=== PATIENT | male | born 1955 | race Caucasian/White ===

== ENCOUNTER 2016-07-24 02:46 | Emergency (ER) | payer BC, OTHER ==
[2016-07-24 02:54] VITALS: BP 118/73; PULSE 52; RESP 20; TEMP 98.2
[2016-07-24] MEDS ORDERED: KETOROLAC 60 MG/2 ML VIAL IM STA (03:22)
--- NOTE | 2016-07-24 03:27 | ED ---
General Adult HPI - General Chief complaint: Urogenital Stated complaint: POSS GROIN INJURY Time Seen by Provider: 07/24/16 03:11 Source: patient, family, RN notes reviewed Mode of arrival: ambulatory Limitations: no limitations - History of Present Illness Initial comments: Patient a 60-year-old male who presents emergency room today with chief complaint of injury to the left groin. Patient does admit that he was at work picking up a box weighing approximately 40 pounds when he felt increased pain to the left groin area. Patient does admit that the pain is worse with certain movements. States still uncomfortable even at rest. Patient denies any other complaints. Denies any history of hernia. Patient denies any recent fever, chills, shortness of breath, chest pain, back pain, abdominal pain, nausea or vomiting, numbness or tingling, dysuria or hematuria, constipation or diarrhea, headaches or visual changes, or any other complaints. - Related Data Home Medications Medication Instructions Recorded Confirmed Atorvastatin Calcium [Lipitor] 40 mg PO HS 12/31/13 07/24/16 Empagliflozin/Linagliptin 1 tab PO DAILY 08/24/15 07/24/16 [Glyxambi 25 mg-5 mg Tablet] Gabapentin 600 mg PO 5XD 08/24/15 07/24/16 Lisinopril [Zestril] 20 mg PO HS 08/24/15 07/24/16 Hydrocodone/Acetaminophen 1 tab PO TID PRN 09/22/15 07/24/16 [Hydrocodon-Acetaminophn 10-325] Ibuprofen [Motrin] 800 mg PO BID PRN 09/22/15 07/24/16 Modafinil 200 mg PO DAILY 09/22/15 07/24/16 Omeprazole [PriLOSEC] 20 mg PO DAILY 09/22/15 07/24/16 metFORMIN HCL 1,000 mg PO BID 09/22/15 07/24/16 tiZANidine HCL [Tizanidine HCl] 4 mg PO HS 09/22/15 07/24/16 Aspirin [Adult Low Dose Aspirin EC] 81 mg PO DAILY 10/01/15 07/24/16 Cholecalciferol [Vitamin D3] 1 tab PO DAILY 02/06/16 07/24/16 Multivitamin [Men's Multi-Vitamin] 1 tab PO DAILY 02/06/16 07/24/16 Previous Rx's Medication Instructions Recorded Cyclobenzaprine [Flexeril] 10 mg PO TID PRN #15 tab 02/06/16 Hydrocodone/Acetaminophen [[place] 1 each PO Q6HR PRN #20 tab 07/24/16 5-325] Ibuprofen [Motrin] 600 mg PO Q6HR PRN #40 day 07/24/16 Allergies Allergy/AdvReac Type Severity Reaction Status Date / Time amoxicillin AdvReac Itching Verified 07/24/16 02:54 Review of Systems ROS Statement: Those systems with pertinent positive or pertinent negative responses have been documented in the HPI. ROS Other: All systems not noted in ROS Statement are negative. Past Medical History Past Medical History: CVA/TIA, Diabetes Mellitus, Hyperlipidemia, Hypertension, Sleep Apnea/CPAP/BIPAP Additional Past Medical History / Comment(s): narcolepsy,migraines, Patient states that he had a TIA just before Mimi in 2014. Patient here last month for stroke like symptoms CVA ruled out diagnosed stress History of Any Multi-Drug Resistant Organisms: None Reported Additional Past Surgical History / Comment(s): eye surgery x 3 for "cross eyed" as Past Anesthesia/Blood Transfusion Reactions: No Reported Reaction Past Psychological History: Depression Smoking Status: Never smoker Past Alcohol Use History: None Reported Past Drug Use History: None Reported - Past Family History Mother Family Medical History: No Reported History Father Family Medical History: Myocardial Infarction ([place]) Additional Family Medical History / Comment(s): from [place] General Exam - General Exam Comments Initial Comments: General: The patient is awake and alert, in no distress, and does not appear acutely ill. Eye: Pupils are equal, round and reactive to light, extra-ocular movements are intact. No nystagmus. There is normal conjunctiva bilaterally. No signs of icterus. Ears, nose, mouth and throat: There are moist mucous membranes and no oral lesions. Neck: The neck is supple, there is no tenderness or JVD. Cardiovascular: There is a regular rate and rhythm. No murmur, rub or gallop is appreciated. Respiratory: Lungs are clear to auscultation, respirations are non-labored, breath sounds are equal. No wheezes, stridor, rales, or rhonchi. Gastrointestinal: Soft, non-distended, non-tender abdomen without masses or organomegaly noted. There is no rebound or guarding present. No CVA tenderness. Bowel sounds are unremarkable. Musculoskeletal: Normal ROM, no tenderness. Strength 5/5. Sensation intact. Pulses equal bilaterally 2+. Neurological: A&O x 3. CN II-XII intact, There are no obvious motor or sensory deficits. Coordination appears grossly intact. Speech is normal. Skin: Skin is warm and dry and no rashes or lesions are noted. Psychiatric: Cooperative, appropriate mood & affect, normal judgment. : Patient does have a small inguinal hernia left side that is reducible on palpation. Patient checked both in a supine and standing position. Limitations: no limitations Course Vital Signs 07/24/16 02:50 Temperature 98.2 F Pulse Rate 52 L Respiratory 20 Rate Blood Pressure 118/73 O2 Sat by Pulse 95 Oximetry Medical Decision Making - Medical Decision Making Was discussed with patient about possible groin muscle strain versus small hernia. Patient given Toradol shot here in the emergency room for symptoms advised follow-up with employee health also be given information for surgeon on- call. Advised that pain increases or worsens to return to emergency room for evaluation. Patient states understanding and is in agreement. Disposition Clinical Impression: Reducible left inguinal hernia Disposition: HOME SELF-CARE Condition: Good Instructions: Inguinal Hernia (ED) Additional Instructions: Please follow-up with employee health in the morning as discussed. Please use pain medication as prescribed. Please return to emergency room for any other concerns. Prescriptions: Hydrocodone/Acetaminophen [Sprakers 5-325] 1 each PO Q6HR PRN #20 tab PRN Reason: Pain Ibuprofen [Motrin] 600 mg PO Q6HR PRN #40 day PRN Reason: Pain Referrals: Bret Evans MD [Primary Care Provider] - 1-2 days Ricardo Funez MD [STAFF PHYSICIAN] - 1-2 days Time of Disposition: 03:26
== END 2016-07-24 03:35 | disposition home or self-care (01) ==
LOC: EC 02:46
DX: K40.90 Unilateral inguinal hernia, without obstruction or gangrene, not specified as recurrent (principal); Z88.0 Allergy status to penicillin; E11.9 Type 2 diabetes mellitus without complications; E78.5 Hyperlipidemia, unspecified; I10 Essential (primary) hypertension; G47.30 Sleep apnea, unspecified; Z79.84 Long term (current) use of oral hypoglycemic drugs; Z79.82 Long term (current) use of aspirin; Z79.899 Other long term (current) drug therapy
CPT/HCPCS: 99283; 96372; J1885

== ENCOUNTER 2016-07-31 06:39 | Inpatient (IN) | payer BC ==
--- NOTE | 2016-07-31 07:37 | ED ---
General Adult HPI - General Chief complaint: Psychiatric Symptoms Stated complaint: MENTAL HEALTH Time Seen by Provider: 07/31/16 07:08 Source: patient, RN notes reviewed Mode of arrival: ambulatory Limitations: no limitations - History of Present Illness Initial comments: Patient is a 60-year-old male presenting to the emergency Department with depression. Patient is having problems with his old lady. Patient states he has chronic depression and is having thoughts of harming himself. Patient has thoughts of driving himself into the river. Patient states he does have a history of self-harm. No homicidal thoughts. Patient does see people that tell him to harm himself. No alcohol or street drug use. No specific physical complaint. - Related Data Home Medications Medication Instructions Recorded Confirmed Atorvastatin Calcium [Lipitor] 40 mg PO HS 12/31/13 07/31/16 Empagliflozin/Linagliptin 1 tab PO DAILY 08/24/15 07/31/16 [Glyxambi 25 mg-5 mg Tablet] Lisinopril [Zestril] 20 mg PO HS 08/24/15 07/31/16 Omeprazole [PriLOSEC] 20 mg PO DAILY 09/22/15 07/31/16 metFORMIN HCL 1,000 mg PO BID 09/22/15 07/31/16 Aspirin [Adult Low Dose Aspirin EC] 81 mg PO DAILY 10/01/15 07/31/16 Cholecalciferol [Vitamin D3] 1 tab PO DAILY 02/06/16 07/31/16 Multivitamin [Men's Multi-Vitamin] 1 tab PO DAILY 02/06/16 07/31/16 ALPRAZolam [Xanax] 0.5 mg PO BID PRN 07/31/16 07/31/16 Citalopram Hydrobromide [CeleXA] 20 mg PO DAILY 07/31/16 07/31/16 Dextroamphetamine/Amphetamine 15 mg PO QAM 07/31/16 07/31/16 [Adderall Xr] Hydrocodone/Acetaminophen [[place] 1 tab PO Q6HR PRN 07/31/16 07/31/16 5-325] Venlafaxine HCl ER [Effexor Xr] 37.5 mg PO DAILY 07/31/16 07/31/16 Previous Rx's Medication Instructions Recorded Ibuprofen [Motrin] 600 mg PO Q6HR PRN #40 day 07/24/16 Allergies Allergy/AdvReac Type Severity Reaction Status Date / Time amoxicillin AdvReac Itching Verified 07/31/16 06:46 Review of Systems ROS Statement: Those systems with pertinent positive or pertinent negative responses have been documented in the HPI. ROS Other: All systems not noted in ROS Statement are negative. Constitutional: Denies: fever Eyes: Denies: eye pain ENT: Denies: ear pain Respiratory: Denies: cough Cardiovascular: Denies: chest pain Endocrine: Denies: fatigue Gastrointestinal: Denies: abdominal pain Genitourinary: Denies: dysuria Musculoskeletal: Denies: back pain Skin: Denies: rash Neurological: Denies: headache Psychiatric: Reports: depression, suicidal thoughts Past Medical History Past Medical History: CVA/TIA, Diabetes Mellitus, Hyperlipidemia, Hypertension, Sleep Apnea/CPAP/BIPAP Additional Past Medical History / Comment(s): narcolepsy,migraines, Patient states that he had a TIA just before in 2014. Patient here last month for stroke like symptoms CVA ruled out diagnosed stress History of Any Multi-Drug Resistant Organisms: None Reported Additional Past Surgical History / Comment(s): eye surgery x 3 for "cross eyed" as Past Anesthesia/Blood Transfusion Reactions: No Reported Reaction Past Psychological History: Depression Smoking Status: Never smoker Past Alcohol Use History: None Reported, Occasional Past Drug Use History: None Reported - Past Family History Mother Family Medical History: No Reported History Father Family Medical History: Myocardial Infarction ([place]) Additional Family Medical History / Comment(s): from [place] General Exam Limitations: no limitations General appearance: alert, in no apparent distress Head exam: Present: atraumatic Eye exam: Present: normal appearance Neck exam: Present: normal inspection Respiratory exam: Present: normal lung sounds bilaterally Cardiovascular Exam: Present: regular rate, normal rhythm GI/Abdominal exam: Present: soft. Absent: tenderness Extremities exam: Present: normal inspection Neurological exam: Present: alert Psychiatric exam: Present: depressed, flat affect Skin exam: Absent: rash Course Vital Signs 07/31/16 07/31/16 06:40 09:30 Temperature 97.1 F L 97.9 F Pulse Rate 64 67 Respiratory 16 18 Rate Blood Pressure 156/83 137/75 O2 Sat by Pulse 98 99 Oximetry Medical Decision Making - Medical Decision Making Patient was seen by mental health services, who will admit. - Lab Data Lab Results 07/31/16 Range/Units 06:55 Urine Opiates Screen Not Detected (NotDetected) Ur Oxycodone Screen Not Detected (NotDetected) Urine Methadone Screen Not Detected (NotDetected) Ur Propoxyphene Screen Not Detected (NotDetected) Ur Barbiturates Screen Not Detected (NotDetected) U Tricyclic Antidepress Not Detected (NotDetected) Ur Phencyclidine Scrn Not Detected (NotDetected) Ur Amphetamines Screen Not Detected (NotDetected) U Methamphetamines Scrn Not Detected (NotDetected) U Benzodiazepines Scrn Detected H (NotDetected) Urine Cocaine Screen Not Detected (NotDetected) U Marijuana (THC) Screen Not Detected (NotDetected) Disposition Clinical Impression: Depression, Suicidal ideation Disposition: TRANSFER TO PSYCH HOSP/UNIT Time of Disposition: 09:35
[2016-07-31] MEDS ORDERED: MAG HYDROX/AL HYDROX/SIMETH 30 ML CUP PO PRN (09:36)
[2016-07-31] MEDS ORDERED: MAGNESIUM HYDROXIDE 2,400 MG/10 ML CUP PO PRN (09:36)
[2016-07-31] MEDS ORDERED: ZIPRASIDONE 20 MG VIAL IM PRN (09:36)
[2016-07-31] MEDS ORDERED: ACETAMINOPHEN TAB 325 MG TAB PO PRN (09:36)
[2016-07-31 10:08] LABS: Glucose,Whole Blood 131 mg/dL (75-99)
[2016-07-31] MEDS ORDERED: LORazepam 1 MG TAB PO PRN (10:20)
[2016-07-31] MEDS ORDERED: LORazepam 2 MG/ML SYRINGE IM PRN (10:20)
[2016-07-31 10:59] VITALS: RESP 16
[2016-07-31] MEDS ORDERED: NICOTINE 14MG/24HR PATCH TRANSDERM SCH (11:00)
[2016-07-31 11:30] LABS: Appearance,Urine Clear (Clear); Bilirubin,Urine Negative (Negative); Glucose,Urine (UA) 4+ (Negative); Ketones,Urine Trace (Negative); Leukocyte Esterase,Urine Negative (Negative); Nitrite,Urine Negative (Negative); PH, Urine 6.5 (5.0-8.0); Protein,Urine Negative (Negative); Specific Gravity,Urine 1.024 (1.001-1.035); UA Billing (MACRO vs. MICRO) CHEM; Urobilinogen,Urine <2.0 mg/dL (<2.0)
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
[2016-07-31] MEDS: IBUPROFEN 600 MG TAB PO PRN (16:47)
[2016-07-31 17:07] LABS: Glucose,Whole Blood 140 mg/dL (75-99)
[2016-07-31 20:07] LABS: Glucose,Whole Blood 220 mg/dL (75-99)
[2016-07-31] MEDS: LISINOPRIL 20 MG TAB PO SCH (20:42)
[2016-07-31] MEDS: metFORMIN 500 MG TAB PO SCH (20:42)
[2016-07-31] MEDS: QUEtiapine 100 MG TAB PO PRN (20:42)
[2016-07-31] MEDS: ATORVASTATIN 40 MG TAB PO SCH (20:42)
[2016-08-01 06:44] VITALS: PULSE 70; TEMP 98.1
[2016-08-01 07:23] LABS: Glucose,Whole Blood 153 mg/dL (75-99)
[2016-08-01] MEDS ORDERED: INSULIN LISPRO (humaLOG) 300 UNIT/3 ML VIAL SQ SCH (07:30)
[2016-08-01] MEDS ORDERED: LORATADINE 10 MG TAB PO PRN (08:10)
[2016-08-01] MEDS: metFORMIN 500 MG TAB PO SCH ×2 (08:22→21:35)
[2016-08-01] MEDS: VENLAFAXINE HCL ER 75 MG CAP PO SCH (08:22)
[2016-08-01] MEDS: ASPIRIN 81 MG CHEW PO SCH (08:22)
[2016-08-01] MEDS: PANTOPRAZOLE 40 MG TABLET PO SCH (08:22)
[2016-08-01] MEDS: INSULIN LISPRO (humaLOG) 300 UNIT/3 ML VIAL SQ SCH ×4 (08:59→21:28)
[2016-08-01 10:06] LABS: Basophils # (A) 0.1 k/uL (0-0.2); Basophils % (A) 1 %; CH 29.8; CHCM 31.4; Eosinophils # (A) 0.2 k/uL (0-0.7); Eosinophils % (A) 4 %; HCT 49.5 % (39.0-53.0); HDW 2.27; HGB 15.5 gm/dL (13.0-17.5); Luc # (Auto) 0.12; Luc % (Auto) 2; Lymphocytes # (A) 1.4 k/uL (1.0-4.8); Lymphocytes % (A) 23 %; MCH 29.9 pg (25.0-35.0); MCHC 31.4 g/dL (31.0-37.0); MCV 95.3 fL (80.0-100.0); Mean Platelet Volume 7.6; Monocytes # (A) 0.4 k/uL (0-1.0); Monocytes % (A) 6 %; Neutrophils # (A) 4.1 k/uL (1.3-7.7); Neutrophils % (A) 66 %; RBC 5.19 m/uL (4.30-5.90); RDW 13.5 % (11.5-15.5); WBC 6.3 k/uL (3.8-10.6); WBC (Perox) 6.29
[2016-08-01 11:11] LABS: ALT 48 U/L (21-72); AST 39 U/L (17-59); Alkaline Phosphatase 58 U/L (38-126); Anion Gap 12 mmol/L; Blood Urea Nitrogen 17 mg/dL (9-20); Calcium 9.6 mg/dL (8.4-10.2); Carbon Dioxide 24 mmol/L (22-30); Chloride 102 mmol/L (98-107); Glucose 262 mg/dL (74-99); Non-African American GFR(MDRD) >60 (>60 ml/min/1.73 sqM); Potassium 4.4 mmol/L (3.5-5.1); Sodium 138 mmol/L (137-145); Total Bilirubin 0.8 mg/dL (0.2-1.3); Total Protein 6.7 g/dL (6.3-8.2)
[2016-08-01 12:13] LABS: Hemoglobin A1C 8.2 % (4.2-6.1)
[2016-08-01 12:41] LABS: Glucose,Whole Blood 139 mg/dL (75-99)
[2016-08-01] MEDS: CHOLECALCIFEROL 1,000 UNIT TAB PO SCH (13:14)
[2016-08-01] MEDS: MULTIVITAMINS, THERA 1 EACH TAB PO SCH (13:15)
--- NOTE | 2016-08-01 15:20 | P.PN ---
Progress Note - Text SUBJECTIVE: I reviewed the medical record, interviewed Riky and discussed his treatment and treatment plan during team meeting. He continues to complain of feeling depressed. He revealed that he left his 2 days prior to admission. He slept in his car 1 night then at a motel the night before his admission. He believes that his is filing for divorce. He is distressed by the separation and impending divorce. He plans to live with his sister after discharge. He completed the Mendez Depression Inventory. His total score was 43 consistent with severe symptoms of depression. He rated the following items as severe: Pessimism, past failure, loss of pleasure, self criticalness, tiredness or fatigue and loss of interest in sex. He rated the following items as moderate punishment feelings, self dislike, crying, agitation, loss of interest, indecisiveness, worthlessness, loss of energy and concentration difficulty. On the suicidal thoughts or wishes question he responded "I have thoughts of killing myself, but I would not carry them out." He complained of poor sleep. He denied side effects to his medications. OBJECTIVE: He presented as a casually groomed middle-aged male who was pleasant on approach. He made eye contact and attended to interview. He had a distressed facial expression. He showed psychomotor retardation but no abnormal involuntary movements. His speech was spontaneous with slight decrease in rate and volume. His affect was depressed and not reactive. He has suicidal thoughts but no intent or plan. He expressed depressive cognitions including hopelessness, helplessness and worthlessness. He perseverated about his separation and probable divorce. He did not express phobias, ideas reference, paranoid ideation or delusional thoughts. His thinking was concrete but his associations were coherent and logical. He denied hallucinations and did not appear to be responding to internal stimuli. His POC glucose ranged from 139-220 and his hemoglobin A1c was 8.2. ASSESSMENT: He remains severely depressed and has thoughts of suicide without intent or plan. PLAN: Continue inpatient hospitalization due to severe depression and suicidal thoughts. Discontinue mirtazapine 15 mg at bedtime. Increase ReVia 50 mg daily , discontinue the venlafaxine and begin Effexor XR 150 mg daily. Continue quetiapine 50 mg at bedtime for sleep. Continue use of CPAP. Encourage participation in therapeutic groups and activities. Evaluate clinical status response to treatment on a daily basis.
[2016-08-01 17:01] LABS: Glucose,Whole Blood 167 mg/dL (75-99)
[2016-08-01 20:22] LABS: Glucose,Whole Blood 208 mg/dL (75-99)
[2016-08-01] MEDS: ATORVASTATIN 40 MG TAB PO SCH (21:31)
[2016-08-01] MEDS: LISINOPRIL 20 MG TAB PO SCH (21:31)
[2016-08-01] MEDS: QUEtiapine 100 MG TAB PO PRN (21:32)
[2016-08-01] MEDS: IBUPROFEN 600 MG TAB PO PRN (21:36)
[2016-08-02 06:31] VITALS: BP 107/58
[2016-08-02 07:09] LABS: Glucose,Whole Blood 151 mg/dL (75-99)
[2016-08-02] MEDS: INSULIN LISPRO (humaLOG) 300 UNIT/3 ML VIAL SQ SCH ×2 (08:20→12:57)
[2016-08-02] MEDS: PANTOPRAZOLE 40 MG TABLET PO SCH (08:21)
[2016-08-02] MEDS: ASPIRIN 81 MG CHEW PO SCH (08:22)
[2016-08-02] MEDS: metFORMIN 500 MG TAB PO SCH (08:22)
[2016-08-02] MEDS: VENLAFAXINE HCL ER 75 MG CAP PO SCH (08:22)
[2016-08-02 12:07] LABS: Glucose,Whole Blood 110 mg/dL (75-99)
[2016-08-02] MEDS: MULTIVITAMINS, THERA 1 EACH TAB PO SCH (12:56)
[2016-08-02] MEDS: CHOLECALCIFEROL 1,000 UNIT TAB PO SCH (12:57)
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
== END 2016-08-02 14:40 | disposition home or self-care (01) | DRG 885 ==
LOC: EC 06:39 → 3MHU 09:33
PROVIDERS: ADMIT Psychiatry & Neurology Psychiatry; ATTEND Psychiatry & Neurology Psychiatry
DX: F33.2 Major depressive disorder, recurrent severe without psychotic features (principal); E11.9 Type 2 diabetes mellitus without complications; R45.851 Suicidal ideations; I10 Essential (primary) hypertension; E78.5 Hyperlipidemia, unspecified; G47.30 Sleep apnea, unspecified; G47.419 Narcolepsy without cataplexy; Z79.82 Long term (current) use of aspirin; Z79.84 Long term (current) use of oral hypoglycemic drugs; Z79.899 Other long term (current) drug therapy; Z86.73 Personal history of transient ischemic attack (TIA), and cerebral infarction without residual deficits; Z82.49 Family history of ischemic heart disease and other diseases of the circulatory system; Z91.5 Personal history of self-harm; Z63.5 Disruption of family by separation and divorce; F60.3 Borderline personality disorder; M54.5 Low back pain; G89.29 Other chronic pain
CPT/HCPCS: 80053; 80306; 81003; 82075; 83036; 84443; 85025; 99285

== ENCOUNTER → 2016-08-03 | Outpatient (CLI) | payer OTHER ==
[2016-08-03 13:21] LABS: Blood Urea Nitrogen 18 mg/dL (9-20); Non-African American GFR(MDRD) >60 (>60 ml/min/1.73 sqM)
--- NOTE | 2016-08-03 15:56 | CT ---
EXAMINATION TYPE: CT abdomen pelvis w con DATE OF EXAM: 08/03/2016 2:55 PM COMPARISON: NONE INDICATION: Patient complains of LLQ pain after lifting injury. Patient has a history of known umbil ical hernia. DLP: 1514.1 mGycm, Automated exposure control for dose reduction was used. CONTRAST: 100 mL of Omnipaque 300. Study performed with Oral Contrast TECHNIQUE: Axial images were obtained from above the diaphragm to the pubic rami in the axial plane a t 5 mm thick sections. Reconstructed images are reviewed on the computer in the coronal plane. FINDINGS: Limited CT sections are obtained the lung bases. The lung bases are clear. CT ABDOMEN: Liver: Normal Spleen: Normal Pancreas: Normal Adrenal glands: The adrenal glands are normal. Gallbladder: Normal Kidneys: No masses are evident. No hydronephrosis is present. No cysts are present. Delayed images were obtained through the kidneys, which remain unremarkable. Aorta: Normal Inferior vena cava: Normal. CT PELVIS: Loops of bowel within the abdomen and pelvis are normal. There are loops of bowel which are incom pletely distended or lack oral contrast limiting their evaluation. Appendix: Normal as visualized. Urinary bladder: Normal. Genitourinary structures: Prostate is mild prominence. Fat-containing inguinal hernias are present. Osseous structures: No suspicious lytic or sclerotic lesions. IMPRESSIONS: 1. No acute abdominal process. 2. Bilateral inguinal hernias containing mesenteric fat. 3. Extremely subtle periumbilical hernia may be present.
== END | disposition home or self-care (01) ==
LOC: RADCTMAIN 12:39
PROVIDERS: ATTEND Surgery
DX: K42.9 Umbilical hernia without obstruction or gangrene (principal); K40.20 Bilateral inguinal hernia, without obstruction or gangrene, not specified as recurrent
CPT/HCPCS: 82565; 84520; 74177; 36415; Q9967

== ENCOUNTER 2016-08-23 07:34 | Day surgery (SDC) | payer BC ==
[2016-08-22 11:30] VITALS: BMI 31.9
[~2016-08-23 07:34] MED LIST: FAMOTIDINE 20 MG/2 ML VIAL IV PRN; HEPARIN SODIUM,PORCINE 5,000 UNIT/ML 1 ML VIAL SQ ONE; HYDROmorphone 1 MG/ML 1 ML SYRINGE IVP PRN; LIDOCAINE 1% 20 ML VIAL (10MG/ML) FOR IV START INTRADERMA PRN; MIDAZOLAM 2 MG/2 ML VIAL IV PRN; ONDANSETRON 4 MG/2 ML VIAL IVP ONE; SCOPOLAMINE 1.5MG/72HR PATCH TRANSDERM ONE; ceFAZolin 2 GM in SODIUM CHLORIDE 0.9% 100 ML IVPB ONE
[2016-08-23 08:39] LABS: Glucose,Whole Blood 132 mg/dL (75-99)
[2016-08-23] MEDS: LACTATED RINGERS 1,000 ML IV SCH ×2 (08:58→08:59)
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
[2016-08-23] MEDS ORDERED: SUCCINYLCHOLINE CHLORIDE 100 MG/5 ML SYR IV ONE (10:23)
[2016-08-23] MEDS ORDERED: KETOROLAC 30 MG/ML 1 ML VIAL ONE (10:23)
[2016-08-23] MEDS ORDERED: NEOSTIGMINE 1 MG/ML 10 ML VIAL ONE (10:23)
[2016-08-23] MEDS ORDERED: ROCURONIUM BROMIDE 10 MG/ML 10 ML VIAL IV ONE (10:23)
[2016-08-23] MEDS ORDERED: fentaNYL (PF) 50 MCG/ML 2 ML AMP ONE (10:23)
[2016-08-23] MEDS ORDERED: MIDAZOLAM 2 MG/2 ML VIAL ONE (10:23)
[2016-08-23] MEDS ORDERED: GLYCOPYRROLATE 0.2 MG/ML 2 ML VIAL ONE (10:23)
[2016-08-23] MEDS ORDERED: PROPOFOL 10 MG/ML 20 ML VIAL IV ONE (10:23)
[2016-08-23] MEDS ORDERED: BUPIVACAIN-EPI 0.25%-1:200,000 30 ML VIAL SQ ONE (11:06)
--- NOTE | 2016-08-23 11:48 | P.OP ---
Date of Procedure: 08/23/16 Preoperative Diagnosis: Bilateral hernias Umbilical hernia Postoperative Diagnosis: Bilateral inguinal hernias Umbilical hernia Procedure(s) Performed: Laparoscopic robotic-assisted repair of bilateral inguinal hernia Laparoscopic umbilical hernia Anesthesia: ADA Surgeon: Ricardo Funez Estimated Blood Loss (ml): 5 Pathology: none sent Condition: stable Disposition: PACU Description of Procedure: he patient's placed on the operating table in the supine position. The patient received general anesthesia. The patient's abdomen was prepped and draped in usual sterile fashion. The skin was anesthetized 1% local Xylocaine at the incision sites. Using an 11 blade a skin incision was made at the umbilicus. The fascia was grasped with a Newell and then the peritoneal cavity was entered with the Veress needle. Position of the Veress needle was confirmed with a positive drop test. After adequate insufflation a 5 mm trocar was placed into the peritoneal cavity. The Laparoscope was placed the peritoneal cavity. And a robotic 8 mm trocar was placed in the right lateral position and then another 8 mm robotic trochars placed in the left lateral position. The original 5 mm trocar was exchanged for a 12 mm trocar. The patient was placed in reverse Trendelenburg and then the patient was docked to the robot. Next the peritoneum over top of the right inguinal hernia was incised and then using blunt and sharp dissection and electrocautery the hernia sac was dissected free from the floor of the inguinal canal. The hernia sac was completely reduced into the peritoneal cavity. And then using the Pro insights analyst mesh the hernia was repaired. The peritoneum was then sutured with 20V lock suture. Next the peritoneum over top of the left hernia was incised and then using blunt and sharp dissection and electrocautery the hernia sac was dissected free from the floor of the inguinal canal. The hernia sac was completely reduced into the peritoneal cavity. And then using the Pro insights analyst mesh the hernia was repaired. The peritoneum was then sutured with 20V lock suture. The patient was then undocked the robot. The needle was withdrawn from the peritoneal cavity. The umbilical hernia site was closed with 0 Ethibond suture. The hernia was closed laparoscopically using the [place] suture passer. The skin was closed interrupted 3-0 Monocryl suture. Dermabond dressing was applied. Patient was sent to recovery in stable condition.
[2016-08-23 12:02] VITALS: RESP 16; TEMP 97.5
[2016-08-23 12:07] LABS: Glucose,Whole Blood 214 mg/dL (75-99)
[2016-08-23] MEDS ORDERED: HYDROmorphone 1 MG/ML 1 ML SYRINGE IVP ONE (13:19)
[2016-08-23 13:54] VITALS: BP 126/87; PULSE 86
== END 2016-08-23 14:57 | disposition home or self-care (01) ==
LOC: OR 07:34
PROVIDERS: ATTEND Surgery
DX: K40.20 Bilateral inguinal hernia, without obstruction or gangrene, not specified as recurrent (principal); K42.9 Umbilical hernia without obstruction or gangrene; Z86.73 Personal history of transient ischemic attack (TIA), and cerebral infarction without residual deficits; E11.9 Type 2 diabetes mellitus without complications; Z79.84 Long term (current) use of oral hypoglycemic drugs; E78.5 Hyperlipidemia, unspecified; I10 Essential (primary) hypertension; G47.30 Sleep apnea, unspecified; Z99.89 Dependence on other enabling machines and devices; Z79.82 Long term (current) use of aspirin; Z79.899 Other long term (current) drug therapy; Z88.0 Allergy status to penicillin; Z88.8 Allergy status to other drugs, medicaments and biological substances
CPT/HCPCS: 49650; 49652; S2900

== ENCOUNTER 2019-01-12 17:56 | Emergency (ER) | payer BC, OTHER ==
[2019-01-12 18:06] VITALS: BP 117/65; PULSE 87; RESP 18; TEMP 98.8
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
== END 2019-01-12 18:50 | disposition home or self-care (01) ==
LOC: EC 17:56
DX: M25.561 Pain in right knee (principal); E11.9 Type 2 diabetes mellitus without complications; E78.5 Hyperlipidemia, unspecified; I10 Essential (primary) hypertension; F32.9 Major depressive disorder, single episode, unspecified; G47.30 Sleep apnea, unspecified; Z99.89 Dependence on other enabling machines and devices; Z86.73 Personal history of transient ischemic attack (TIA), and cerebral infarction without residual deficits; Z98.890 Other specified postprocedural states; Z79.82 Long term (current) use of aspirin; Z79.84 Long term (current) use of oral hypoglycemic drugs; Z79.899 Other long term (current) drug therapy; Z88.0 Allergy status to penicillin; Z88.8 Allergy status to other drugs, medicaments and biological substances; W22.09XA Striking against other stationary object, initial encounter; Y92.89 Other specified places as the place of occurrence of the external cause
CPT/HCPCS: 99283

== ENCOUNTER → 2019-03-18 | Outpatient (CLI) | payer OTHER ==
--- NOTE | 2019-03-18 10:58 | MR ---
EXAMINATION TYPE: MR knee RT wo con DATE OF EXAM: 03/18/2019 COMPARISON: Plain film 03/07/2019 HISTORY: R knee pain TECHNIQUE: Multiplanar, multisequence imaging of the right knee is performed without IV contrast. FINDINGS: MEDIAL MENISCUS: Linear increased signal in the posterior horn of the medial meniscus extends towards the body and is thought likely to extend to the undersurface on sagittal image #7, coronal image #20 and 21 LATERAL MENISCUS: Linear increased signal within the posterior horn of the lateral meniscus extends t o the articular surface on coronal image #23, sagittal image #24, 2526 CRUCIATE LIGAMENTS: Intact COLLATERAL LIGAMENTS: Medial collateral ligament shows some abnormal thickening, some increased in in trinsic signal EXTENSOR MECHANISM: Visualized quadriceps and patellar tendons are intact. EFFUSION: Small suprapatellar joint POPLITEAL CYST: No popliteal/rodriguez cyst. TRICOMPARTMENT SPACES: Within normal limits CARTILAGE: Grade 2 to grade III chondromalacia medial compartment and posterior patella BONE MARROW SIGNAL: No focal abnormal marrow signal is appreciated. OTHER: No additional significant abnormality is appreciated. IMPRESSION: Meniscal tears, grade 2 medial collateral ligament sprain, osteoarthritis
== END | disposition home or self-care (01) ==
LOC: RADMRIMAIN 07:04
PROVIDERS: ATTEND Orthopaedic Surgery
DX: M17.11 Unilateral primary osteoarthritis, right knee (principal); S83.411A Sprain of medial collateral ligament of right knee, initial encounter; S83.206A Unspecified tear of unspecified meniscus, current injury, right knee, initial encounter

== ENCOUNTER 2019-05-01 09:51 | Day surgery (SDC) | payer OTHER ==
[2019-04-28 10:11] VITALS: BMI 29.2
--- NOTE | 2019-04-30 20:54 | HP ---
HISTORY AND PHYSICAL DATE OF SURGERY: 05/01/2019 Riky Booker is a 63-year-old patient seen with progressive right knee pain. We discussed options for treatment. He elected to proceed with arthroscopy. Consent was obtained. PAST MEDICAL HISTORY: 1. Hyperlipidemia. 2. Insulin-dependent diabetes. 3. Hypertension. PAST SURGICAL HISTORY: Noncontributory. DAILY MEDICATIONS: 1. Insulin. 2. Lisinopril. 3. Atorvastatin. 4. Aspirin. ALLERGIES: AMOXICILLIN. SOCIAL HISTORY: Denies tobacco use. PHYSICAL EVALUATION OF THE RIGHT KNEE: Range of motion 0 to 130. Mild effusion. Tenderness, medial and lateral joint lines. Positive medial Jasmyn's. Positive lateral Jasmyn's. Ligaments are stable. Hip rotation without pain. Distal neurovascular exam is intact. RADIOGRAPHS: Right knee radiographs revealed mild osteoarthritis. Right knee MRI revealed medial and lateral meniscal tears. IMPRESSION: 1. Internal derangement of right knee with medial and lateral meniscal tears. 2. Right knee osteoarthritis. 3. Hypertension. 4. Hyperlipidemia. 5. Insulin-dependent diabetes. PLAN: Right knee arthroscopy with partial meniscectomy, partial synovectomy and debridement. MMODL / IJN: [id number] /
[~2019-05-01 09:51] MED LIST changes: +DEXAMETHASONE SOD PHOSPHATE 10 MG/ML 1 ML VIAL IV ONE; -FAMOTIDINE 20 MG/2 ML VIAL IV PRN; -HEPARIN SODIUM,PORCINE 5,000 UNIT/ML 1 ML VIAL SQ ONE; -HYDROmorphone 1 MG/ML 1 ML SYRINGE IVP PRN; +LACTATED RINGERS 1,000 ML IV SCH; -MIDAZOLAM 2 MG/2 ML VIAL IV PRN; -ceFAZolin 2 GM in SODIUM CHLORIDE 0.9% 100 ML IVPB ONE
[2019-05-01 10:50] LABS: Glucose,Whole Blood 117 mg/dL (75-99)
[2019-05-01] MEDS ORDERED: SUCCINYLCHOLINE CHLORIDE 100 MG/5 ML SYR IV ONE (11:17)
[2019-05-01] MEDS ORDERED: PROPOFOL 10 MG/ML 20 ML VIAL IV ONE (11:17)
[2019-05-01] MEDS ORDERED: MIDAZOLAM 2 MG/2 ML VIAL ONE (11:17)
[2019-05-01] MEDS ORDERED: fentaNYL (PF) 50 MCG/ML 2 ML AMP ONE (11:17)
[2019-05-01] MEDS ORDERED: LIDOCAINE 1% INJ 10MG/ML (20 ML MDV) ONE (11:17)
--- NOTE | 2019-05-01 12:06 | P.OP ---
Date of Procedure: 05/01/19 Preoperative Diagnosis: Internal derangement right knee Postoperative Diagnosis: 1. Tear medial meniscus right knee 2. 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 Reactive synovitis medial, lateral and suprapatellar compartments right knee Procedure(s) Performed: 1. Arthroscopic partial medial meniscectomy right knee 2. Arthroscopic chondroplasty patellofemoral joint right knee 3. Arthroscopic partial synovectomy medial, lateral and suprapatellar compartments right knee Anesthesia: CHRISTALA, local Surgeon: Eliud Bergman Estimated Blood Loss (ml): 5 Pathology: none sent Condition: stable Disposition: PACU Indications for Procedure: 63-year-old patient seen with progressive right knee pain. After treatment options were discussed, he elected to proceed with arthroscopy. Operative Findings: See description of procedure Description of Procedure: Patient was taken to the operative suite. Patient underwent a general anesthetic by the department of anesthesia. Patient was given preoperative ant ibiotics. The right lower extremity was placed in a well-padded arthroscopic leg wood. The right leg was prepped and draped in the normal sterile orthopedic fashion. A lateral parapatellar and suprapatellar incision was made. Trochars were inserted. Arthroscopy was initiated. Suprapatellar pouch revealed diffuse thick reactive synovitis. The patellofemoral joint appeared to articulate congruently. There was grade 3 chondromalacia of the patella and grade 3/4 chondromalacia of the femoral sulcus with osteochondral flap tears present. The scope was guided into the medial gutter. No loose bodies or plica were identified. The scope was then guided into the medial compartment. A medial parapatellar incision was made. Trocar inserted followed by probe. There was a complex tear posterior horn medial meniscus. There were grade 1/2 chondromalacia changes of the medial femoral condyle with no osteochondral flap tears present. There was thick reactive synovitis anteriorly. I performed a partial medial meniscectomy getting down to stable meniscal tissue. I performed a partial synovectomy decompressing the thick reactive synovitis anteriorly. The residual meniscus was stable. There was good decompression of the synovitis. Scope and probe were then guided into the intercondylar notch. Cruciates were identified, probed and found to be stable. The scope and probe were then guided into lateral compartment. There was some fraying of the midbody lateral meniscus. There was thick reactive synovitis anteriorly. I introduced a motorized shaver and debrided that area of fraying of lateral meniscus. I performed a partial synovectomy decompressing the reactive synovitis. The shaver was removed. There was good decompression of synovitis. The scope was in guided back into the suprapatellar compartment. I introduced a motorized shaver into the super patellar compartment. I debrided some piecemeal fragments of meniscus I encountered. I performed a chondroplasty of the patella and femoral sulcus. I performed a partial synovectomy decompressing the reactive synovitis. The shaver was removed. I took one more look around the entire knee, no residual debris. Instruments were now removed from the joint. The joint was infiltrated with .25% Marcaine. Steri-Strips were applied to the portal sites. Sterile dressings were applied. The patient was placed into a MARC hose. No tourniquet was utilized. The patient was awakened, transferred to a bed and taken to recovery stable satisfactory condition.
[2019-05-01 12:20] VITALS: TEMP 97.1
[2019-05-01 12:31] LABS: Glucose,Whole Blood 101 mg/dL (75-99)
[2019-05-01] MEDS: HYDROmorphone 0.5 MG/0.5 ML SYRINGE IVP PRN ×2 (12:37→12:42)
[2019-05-01 13:06] VITALS: RESP 16
[2019-05-01] MEDS ORDERED: HYDROcodone/APAP 5-325MG 1 EACH TAB PO ONE (13:20)
[2019-05-01 13:37] VITALS: BP 120/78; PULSE 74
== END 2019-05-01 13:55 | disposition home or self-care (01) ==
LOC: OR 09:51
PROVIDERS: ATTEND Orthopaedic Surgery
DX: S83.241A Other tear of medial meniscus, current injury, right knee, initial encounter (principal); X58.XXXA Exposure to other specified factors, initial encounter; M22.41 Chondromalacia patellae, right knee; M65.861 Other synovitis and tenosynovitis, right lower leg; M17.11 Unilateral primary osteoarthritis, right knee; E78.5 Hyperlipidemia, unspecified; E11.9 Type 2 diabetes mellitus without complications; F32.9 Major depressive disorder, single episode, unspecified; I10 Essential (primary) hypertension; Z79.82 Long term (current) use of aspirin; Z79.4 Long term (current) use of insulin; Z79.899 Other long term (current) drug therapy; Z88.0 Allergy status to penicillin; Z88.8 Allergy status to other drugs, medicaments and biological substances
CPT/HCPCS: 29881; 29876; J2250; J1100; J0690; J2405; J2001; J3010; J0330; J2704; J1170

== ENCOUNTER → 2019-06-27 | Day surgery (SDC) | payer OTHER ==
[2019-06-26 10:08] VITALS: BMI 31.9
[~2019-06-27] MED LIST changes: +BUPIVACAINE (PF) 0.25% 30 ML VIAL SQ ONE; +GLYCOPYRROLATE 0.2 MG/ML 2 ML VIAL ONE; +HEPARIN SODIUM,PORCINE 5,000 UNIT/ML 1 ML VIAL SQ ONE; +HYDROcodone/APAP 5-325MG 1 EACH TAB PO ONE; +KETOROLAC 30 MG/ML 1 ML VIAL ONE; +LACTATED RINGERS 1,000 ML IV ONE; +LIDOCAINE 1% (10MG/ML) FOR IV START INTRADERMA PRN; -LIDOCAINE 1% 20 ML VIAL (10MG/ML) FOR IV START INTRADERMA PRN; +LIDOCAINE 1% INJ 10MG/ML (20 ML MDV) ONE; +MIDAZOLAM 2 MG/2 ML VIAL IV PRN; +MIDAZOLAM 2 MG/2 ML VIAL ONE; +NEOSTIGMINE 1 MG/ML 10 ML VIAL ONE; +PROPOFOL 10 MG/ML 20 ML VIAL IV ONE; +ROCURONIUM BROMIDE 10 MG/ML 5 ML VIAL IV ONE; -SCOPOLAMINE 1.5MG/72HR PATCH TRANSDERM ONE; +fentaNYL (PF) 50 MCG/ML 2 ML AMP ONE
[2019-06-27 07:56] LABS: Glucose,Whole Blood 122 mg/dL (75-99)
--- NOTE | 2019-06-27 08:36 | P.GSHP ---
History of Present Illness H&P Date: 06/27/19 Chief Complaint: Right inguinal hernia This a 63-year-old male developed a recurrent right inguinal hernia. Patient rents today for open repair. Past Medical History Past Medical History: CVA/TIA, Diabetes Mellitus, Hyperlipidemia, Hypertension, Sleep Apnea/CPAP/BIPAP Additional Past Medical History / Comment(s): narcolepsy,migraines, TIA 03/2015, SLIGHT MEMORY LOSS History of Any Multi-Drug Resistant Organisms: None Reported Past Surgical History: Back Surgery, Hernia Repair, Orthopedic Surgery Additional Past Surgical History / Comment(s): eye surgery x 3 for "cross eyed" as . Right knee arthroscopy. hernia surgery x3 Past Anesthesia/Blood Transfusion Reactions: No Reported Reaction Smoking Status: Never smoker - Past Family History Mother Family Medical History: Diabetes Mellitus Additional Family Medical History / Comment(s): legally blind Father Family Medical History: Myocardial Infarction (CT) Additional Family Medical History / Comment(s): fatal CT Medications and Allergies Home Medications Medication Instructions Recorded Confirmed Type Atorvastatin Calcium [Lipitor] 40 mg PO HS 12/31/13 06/27/19 History Lisinopril [Zestril] 20 mg PO HS 08/24/15 06/27/19 History Aspirin [Adult Low Dose Aspirin EC] 81 mg PO DAILY 10/01/15 06/27/19 History Citalopram Hydrobromide [CeleXA] 40 mg PO HS 04/28/19 06/27/19 History INSULIN LISPRO (humaLOG) [humaLOG] 14 units SQ TID-W/MEALS 04/28/19 06/27/19 History Insulin Glargine,Hum.rec.anlog 70 unit SQ HS 04/28/19 06/27/19 History [Basaglar Kwikpen U-100] traZODone HCL 50 mg PO HS 04/28/19 06/27/19 History Allergies Allergy/AdvReac Type Severity Reaction Status Date / Time amoxicillin Allergy Rash/Hives Verified 06/27/19 07:37 modafinil [From Provigil] AdvReac HEADACHE Verified 06/27/19 07:37 Surgical - Exam Vital Signs Temp Pulse Resp BP Pulse Ox 98.1 F 88 16 163/95 92 L 06/27/19 07:31 06/27/19 07:31 06/27/19 07:31 06/27/19 07:31 06/27/19 07:31 - General well developed, well nourished, no distress - Eyes PERRL - ENT normal pinna - Neck no masses - Respiratory normal expansion - Cardiovascular Rhythm: regular - Abdomen Abdomen: soft, non tender Hernia: inguinal (Recurrent right) Results - Labs Abnormal Lab Results - Last 24 Hours (Table) 06/27/19 Range/Units 07:48 POC Glucose (mg/dL) 122 H (75-99) mg/dL Assessment and Plan Assessment: Radial hernia. We'll perform open repair.
[2019-06-27] MEDS: HYDROmorphone 0.5 MG/0.5 ML SYRINGE IVP PRN ×2 (10:19→10:24)
[2019-06-27 10:22] VITALS: TEMP 97
[2019-06-27] MEDS: fentaNYL (PF) 50 MCG/ML 2 ML AMP IVP PRN ×2 (10:32→10:43)
[2019-06-27 11:20] VITALS: RESP 17
[2019-06-27 11:37] VITALS: BP 129/88; PULSE 88
[2019-06-27 11:45] LABS: Glucose,Whole Blood 103 mg/dL (75-99)
--- NOTE | 2019-07-15 09:17 | P.OP ---
Date of Procedure: 06/27/19 Preoperative Diagnosis: Recurrent right internal hernia Postoperative Diagnosis: Recurrent right inguinal hernia Procedure(s) Performed: Open repair recurrent right inguinal hernia Anesthesia: ADA Surgeon: Ricardo Funez Estimated Blood Loss (ml): 10 Pathology: none sent Condition: stable Disposition: PACU Description of Procedure: DESCRIPTION OF PROCEDURE: The patient was placed in the supine position after receiving adequate anesthesia. The patient's right groin was prepped and draped in the usual sterile fashion. A standard hernia incision was made and the subcutaneous tissues were divided with electrocautery. The fascia of the external oblique was exposed. A bhumika the fascia was made with #15 blade. The fascia was then opened with pair of Metzenbaum scissors. A Weitlaner retractor was placed in the wound and the cord structures were grasped and disse cted free from the inguinal canal. A rubber [place] drain was placed around the cord structures. The hernial sac was seen on the anterior-medial portion of the cord and this was dissected free from the cord. The hernia sac was then invaginated to the peritoneal cavity. Using blunt finger dissection, the preperitoneal space was dissected and then the Prolene hernial mesh plug was placed into the prepared space. The inferior leaf was expanded. The superior leaf was secured to the pubic tubercle using 2-0 Prolene suture. The lateral portion of the superior leaf was incised and cords tied and secured to the transversalis fascia using 2-0 Prolene suture. Fascia of the external oblique was then closed using #0 Vicryl suture. The Alexandra drain was removed. The Scarpas fascia was then closed with 3-0 Vicryl suture and skin was closed with elias. The patient tolerated the procedure well.
== END ==
LOC: OR 07:17
PROVIDERS: ATTEND Surgery
DX: K40.91 Unilateral inguinal hernia, without obstruction or gangrene, recurrent (principal); I10 Essential (primary) hypertension; E78.5 Hyperlipidemia, unspecified; E11.9 Type 2 diabetes mellitus without complications; G47.33 Obstructive sleep apnea (adult) (pediatric); Z99.89 Dependence on other enabling machines and devices; I69.311 Memory deficit following cerebral infarction; G47.419 Narcolepsy without cataplexy; G43.909 Migraine, unspecified, not intractable, without status migrainosus; F32.9 Major depressive disorder, single episode, unspecified; E66.9 Obesity, unspecified; Z68.32 Body mass index [BMI] 32.0-32.9, adult; Z98.890 Other specified postprocedural states; Z83.3 Family history of diabetes mellitus; Z82.1 Family history of blindness and visual loss; Z82.49 Family history of ischemic heart disease and other diseases of the circulatory system; Z79.82 Long term (current) use of aspirin; Z79.4 Long term (current) use of insulin; Z79.899 Other long term (current) drug therapy; Z88.0 Allergy status to penicillin; Z88.8 Allergy status to other drugs, medicaments and biological substances
CPT/HCPCS: 49520; C1781; J2250; J1644; J1100; J2710; J0690; J2405; J2001; J3010; J1885; J2704; J1170

== ENCOUNTER → 2020-11-24 | Outpatient (CLI) | payer OTHER ==
--- NOTE | 2020-11-24 14:25 | MR ---
EXAMINATION TYPE: MR lumbar spine wo/w con DATE OF EXAM: 11/24/2020 COMPARISON: CT A/P dated 08/03/2016. HISTORY: Lumbar pain, right radiculopathy. Pain in the low back for 2 to 3 months going into the righ t lower extremity per patient. TECHNIQUE: Multiplanar, multisequence images of the lumbar spine is performed without and with IV contrast, util izing 9.5 mL intravenous Gadavist FINDINGS: Sagittal images of the lumbar spine show vertebral body heights and alignment to appear sat isfactory. Multilevel disc desiccation with mild disc space narrowing L1-L2 level. Mild to moderate m ultilevel anterior spurring. The conus medullaris is normal in signal slightly low in position endin g superior L2 level. The bone marrow signal intensity is within normal limits. No suspicious postcon trast enhancement. Axial images show T12-L1 level to appear within normal limits. Axial images at L1-L2 level show mild broad disc bulge mildly effacing anterior thecal sac along with mild facet degenerative changes bilaterally. Patent bilateral neural foramina. Axial images at L2-L3 level appear within normal limits. Axial images L3-L4 level show mild to moderate facet degenerative changes bilaterally. There is mild- to-moderate broad disc bulge minimally effacing anterior thecal sac. There is mild left-sided anterio r inferior neural foraminal narrowing due to left foraminal disc protrusion component. Patent right-s ided neural foramina noted. Axial images at L4-L5 level show mild facet arthropathy bilaterally. There is broad-based posterior d isc protrusion but spinal canal is preserved. There is asymmetric mild right-sided anterior inferior neural foraminal narrowing. Axial images at L5-S1 level show mild/moderate facet arthropathy bilaterally. There is tiny right par acentral disc protrusion. Spinal canal is preserved. There is moderate to borderline severe right-guerita ed neural foraminal narrowing due to right foraminal disc protrusion component axial image 3 and sagi ttal image 11. Mild left-sided inferior neural foraminal narrowing noted. Paraspinal muscle bulk is preserved. IMPRESSION: Multilevel degenerative changes in the lumbar spine as detailed above. Attention to the L 5-S1 level where eccentric disc herniation causes most prominent right-sided neural foraminal narrowi ng with likely some effacement along the exiting right L5 nerve thought present correlating with khanh ent's history of right lower extremity pain and radiculopathy.
== END | disposition home or self-care (01) ==
LOC: RADMRIMAIN 07:21
PROVIDERS: ATTEND Family Medicine
DX: M51.36 Other intervertebral disc degeneration, lumbar region (principal); M51.27 Other intervertebral disc displacement, lumbosacral region; Z87.39 Personal history of other diseases of the musculoskeletal system and connective tissue
CPT/HCPCS: 72158; A9585

== ENCOUNTER → 2021-08-18 | Outpatient (CLI) | payer MEDICARE, OTHER ==
--- NOTE | 2021-08-18 17:45 | CONS ---
CONSULTATION DATE OF SERVICE: 08/18/2021 This 65-year-old gentleman has been evaluated [facility] for obstructive sleep apnea-hypopnea syndrome. HISTORY OF PRESENT ILLNESS/SLEEP-WAKE EVALUATION: Patient has a history of obstructive sleep apnea diagnosed in the past. He was treated with CPAP and his CPAP was broken about 6 years ago. For different reasons, including insurance problem, patient was not able to get his CPAP equipment. Currently his sleep schedule is from 1 a.m. until 6 a.m. basically 7 days a week. He does have problems with falling asleep. He has a TV set in the bedroom. He usually sleeps on the back position with loud snoring, up to 5 times awakening from sleep with 4 episodes of nocturia. Positive history of significant amount of leg movements during the night. In the morning the patient wakes up tired, has difficulties paying attention, falling asleep during the day, has problems with concentration, irritability, depression. [place] Sleepiness Scale today is significantly increased at 16. I reviewed the results of his previous sleep study in 2008 that showed moderate obstructive sleep apnea-hypopnea syndrome with apnea-hypopnea index 26.3. At that time treatment with CPAP at the pressure of 11 was sufficient. PAST MEDICAL HISTORY: Positive for diabetes mellitus, hyperlipidemia, hypertension, stroke 10 years ago with headaches, restless legs symptoms. PAST SURGICAL HISTORY: Bilateral cataract surgery in 2021, back surgery, right knee surgery. MEDICATIONS: 1. Lantus. 2. NovoLog. 3. Metformin 1000 mg once a day. 4. Atorvastatin 40 mg once a day. 5. Omeprazole 20 mg once a day. 6. Trazodone 100 mg once a day. SOCIAL HISTORY: Negative for smoking. Alcohol consumption occasional. REVIEW OF SYSTEMS: Multiple awakenings from sleep, loud snoring, significant sleepiness during the day. No fevers. No double vision. No recent chest pain. No shortness of breath. No abdominal pain. No bleeding episodes. No blood in the urine. No seizure episodes. PHYSICAL EXAMINATION: GENERAL: Pleasant gentleman without distress. VITAL SIGNS: BP 151/89, HR 79, RR 16, height 5 feet 7 inches, weight 213.2, body mass index 33.3. Neck 18-3/4 inches in circumference. Temperature 97.5, oxygen saturation at room air 96%. HEENT: PERRLA, EOMI, evaluation of oropharynx showed tongue protrudes midline. Low position of soft palate; Mallampati III to IV. NECK: Supple, no JVD. Thyroid is not palpable. LUNGS: Clear to percussion and to auscultation. Good air exchange. No wheezing or rhonchi. HEART: S1, S2 regular. No murmurs, gallops, or rubs. ABDOMEN: Soft and nontender. Bowel sounds are present. No organomegaly appreciated. EXTREMITIES: No clubbing or cyanosis. H[employer] MILL [employer]ER: Awake, alert, and oriented X3. Cranial nerves 2 to 7 intact. There is no fasciculation or atrophy. noted. No focal deficits observed. IMPRESSION: 1. Loud snoring, multiple awakenings from sleep, low position of soft palate, Mallampati III to IV, extremely wide neck, 18-3/4 inches in circumference, history of obstructive sleep apnea in the past. CPAP unit was broken about 6 years ago. Since that time patient has not used CPAP equipment. Obstructive sleep apnea- hypopnea syndrome. 2. Obesity; body mass index 33.3. 3. Diabetes mellitus. 4. Hypertension. 5. Hyperlipidemia. 6. Acid reflux. 7. History of stroke. 8. Headaches. 9. Restless leg symptoms. 10.Status post bilateral cataract surgery in 2021. 11.Status post back surgery. 12.Status post right knee surgery. PLAN: 1. Polysomnography for evaluation of patient's breathing during sleep. 2. CPAP/BiPAP titration if sleep study confirms obstructive sleep apnea-hypopnea syndrome. 3. Preferable position during sleep on the side. 4. No driving if patient feels any sleepiness. 5. I will see patient for follow up visit to explain results of testing and following plan. Thank you very much for referring this patient for consultation. Sincerely, Osman Mayen MD, PhD, FAASM Diplomat of [place] [employer] Sleep Medicine Board of [place] [employer] [facility] [place] MMODL / IJN: [id number] /
== END | disposition home or self-care (01) ==
LOC: SLEEP 14:12
PROVIDERS: ATTEND Internal Medicine
DX: G47.33 Obstructive sleep apnea (adult) (pediatric) (principal); E66.9 Obesity, unspecified; E11.9 Type 2 diabetes mellitus without complications; I10 Essential (primary) hypertension; E78.5 Hyperlipidemia, unspecified; K21.9 Gastro-esophageal reflux disease without esophagitis; Z86.73 Personal history of transient ischemic attack (TIA), and cerebral infarction without residual deficits; R51.9 Headache, unspecified; G25.81 Restless legs syndrome; Z98.42 Cataract extraction status, left eye; Z98.41 Cataract extraction status, right eye; Z96.651 Presence of right artificial knee joint; Z68.33 Body mass index [BMI] 33.0-33.9, adult
CPT/HCPCS: 99211

== ENCOUNTER 2021-09-23 15:09 | Emergency (ER) | payer MEDICARE, OTHER ==
[2021-09-23 15:15] VITALS: TEMP 98.3
[2021-09-23] MEDS ORDERED: MORPHINE SULFATE 4 MG/ML SYRINGE IV STA (15:31)
[2021-09-23] MEDS ORDERED: ONDANSETRON 4 MG/2 ML VIAL IVP STA (15:31)
[2021-09-23] MEDS ORDERED: SODIUM CHLORIDE 0.9% 2,000 ML IV STA (15:31)
[2021-09-23 15:44] LABS: Basophils # (A) 0.1 k/uL (0-0.2); Basophils % (A) 1 %; Eosinophils # (A) 0.2 k/uL (0-0.7); Eosinophils % (A) 2 %; HCT 49.7 % (39.0-53.0); Lymphocytes # (A) 1.4 k/uL (1.0-4.8); Lymphocytes % (A) 18 %; MCH 29.3 pg (25.0-35.0); MCHC 32.1 g/dL (31.0-37.0); MCV 91.3 fL (80.0-100.0); Mean Platelet Volume 8.6; Monocytes # (A) 0.4 k/uL (0-1.0); Monocytes % (A) 5 %; Neutrophils # (A) 5.6 k/uL (1.3-7.7); Neutrophils % (A) 72 %; Platelet Count 267 k/uL (150-450); RBC 5.45 m/uL (4.30-5.90); RDW 13.1 % (11.5-15.5); WBC 7.8 k/uL (3.8-10.6)
[2021-09-23 15:56] LABS: ALT 29 U/L (4-49); AST 29 U/L (17-59); African American GFR (CKD) >90 (>60 ml/min/1.73 sqM); Albumin 4.5 g/dL (3.5-5.0); Alkaline Phosphatase 78 U/L (38-126); Anion Gap 5 mmol/L; Blood Urea Nitrogen 14 mg/dL (9-20); Calcium 9.3 mg/dL (8.4-10.2); Carbon Dioxide 25 mmol/L (22-30); Chloride 102 mmol/L (98-107); Glucose 253 mg/dL (74-99); Lipase 101 U/L (23-300); Non-African American GFR(CKD) >90 (>60 ml/min/1.73 sqM); Potassium 4.5 mmol/L (3.5-5.1); Sodium 132 mmol/L (137-145); Total Bilirubin 0.7 mg/dL (0.2-1.3); Total Protein 7.3 g/dL (6.3-8.2)
--- NOTE | 2021-09-23 16:13 | XR ---
EXAMINATION TYPE: XR chest 2V DATE OF EXAM: 09/23/2021 COMPARISON: Chest x-ray June 24, 2015 HISTORY: Cough with sputum production. TECHNIQUE: Frontal and lateral views of the chest are obtained. FINDINGS: Somewhat low lung volumes redemonstrated. Mild left basilar linear scarring redemonstrated. There is no suspicious new focal air space opacity, pleural effusion, or pneumothorax seen. Cardiome lizette again seen. The osseous structures are intact. IMPRESSION: Chronic changes and cardiomegaly without acute pulmonary process.
--- NOTE | 2021-09-23 16:49 | ED ---
Abdominal Pain HPI - General Chief Complaint: Abdominal Pain Stated Complaint: Sent By PCP for CT Time Seen by Provider: 09/23/21 15:21 Source: patient Mode of arrival: ambulatory Limitations: no limitations - History of Present Illness Initial Comments: Patient is a 65-year-old male who presents to the emergency department with a chief complaint of abdominal pain, bloating, nausea, and vomiting. Patient states his symptoms started a couple days ago. Describes the pain as generalized and constant with no radiation. States it "feels like a really bad stomach ache." Unable to tolerate food and liquid. Reports normal bowel movements, last one was this afternoon, normal size, nonbloody. Patient also reports a wet cough that started around the same time as his other symptoms. Denies recent sick contacts. Denies fever, chills, other URI symptoms, shortness of breath, chest pain, diarrhea, burning with urination, blood in the urine. Patient went to his primary care provider today and states his abdominal x-ray was negative. He states his primary care provider sent him here for CT of the abdomen. Abdominal surgical history includes 2 hernia repairs. - Related Data Home Medications Medication Instructions Recorded Confirmed Atorvastatin Calcium [Lipitor] 40 mg PO HS 12/31/13 06/27/19 lisinopriL [Zestril] 20 mg PO HS 08/24/15 06/27/19 Citalopram Hydrobromide [CeleXA] 40 mg PO HS 04/28/19 06/27/19 ARIPiprazole [Abilify] 5 mg PO HS 09/23/21 09/23/21 Albuterol Sulfate [Albuterol 2 puff PO RT-Q6H PRN 09/23/21 09/23/21 Sulfate Hfa] Dulaglutide [Trulicity] 1.5 mg SQ QMONTHLY 09/23/21 09/23/21 INSULIN ASPART (NovoLOG) [NovoLOG See Protocol SQ DAILY@1200 09/23/21 09/23/21 (formulary)] Insulin Glargine [Lantus Vial] 50 unit SQ BID 09/23/21 09/23/21 Omeprazole 20 mg PO HS 09/23/21 09/23/21 metFORMIN HCL [Glucophage] 1,000 mg PO W/SUPPER 09/23/21 09/23/21 traZODone HCL 50 mg PO HS 09/23/21 09/23/21 Previous Rx's Medication Instructions Recorded Ondansetron Odt [Zofran Odt] 4 mg PO Q8HR PRN 5 Days #15 tab 09/23/21 Simethicone [Mylanta Gas Minis] 125 mg PO TID PRN #15 tab 09/23/21 Allergies Allergy/AdvReac Type Severity Reaction Status Date / Time amoxicillin Allergy Rash/Hives Verified 09/23/21 17:08 modafinil [From Provigil] AdvReac HEADACHE Verified 09/23/21 17:08 Review of Systems ROS Statement: Those systems with pertinent positive or pertinent negative responses have been documented in the HPI. ROS Other: All systems not noted in ROS Statement are negative. Past Medical History Past Medical History: CVA/TIA, Diabetes Mellitus, Hyperlipidemia, Hypertension, Sleep Apnea/CPAP/BIPAP Additional Past Medical History / Comment(s): narcolepsy,migraines, TIA 03/2015, SLIGHT MEMORY LOSS History of Any Multi-Drug Resistant Organisms: None Reported Past Surgical History: Back Surgery, Hernia Repair, Orthopedic Surgery Additional Past Surgical History / Comment(s): eye surgery x 3 for "cross eyed" as infant. Right knee arthroscopy. hernia surgery x3 Past Anesthesia/Blood Transfusion Reactions: No Reported Reaction Past Psychological History: Depression Past Alcohol Use History: None Reported Past Drug Use History: None Reported - Past Family History Mother Family Medical History: Diabetes Mellitus Additional Family Medical History / Comment(s): legally blind Father Family Medical History: Myocardial Infarction ([place]) Additional Family Medical History / Comment(s): fatal [place] General Exam Limitations: no limitations General appearance: alert, in no apparent distress Head exam: Present: atraumatic, normocephalic, normal inspection Eye exam: Present: normal appearance, PERRL, EOMI. Absent: scleral icterus, conjunctival injection, periorbital swelling Neck exam: Present: normal inspection. Absent: tenderness, meningismus, lymphadenopathy Respiratory exam: Present: normal lung sounds bilaterally. Absent: respiratory distress, wheezes, rales, rhonchi, stridor Cardiovascular Exam: Present: regular rate, normal rhythm, normal heart sounds. Absent: systolic murmur, diastolic murmur, rubs, gallop, clicks GI/Abdominal exam: Present: soft, distended (moderate), tenderness (worse in RUQ and LUQ), normal bowel sounds. Absent: guarding, rebound, rigid Back exam: Present: normal inspection. Absent: CVA tenderness (R), CVA tenderness (L) Neurological exam: Present: alert, oriented X3, CN II-XII intact Psychiatric exam: Present: normal affect, normal mood Course Vital Signs 09/23/21 15:11 Temperature 98.3 F Pulse Rate 77 Respiratory 18 Rate Blood Pressure 167/99 O2 Sat by Pulse 96 Oximetry Medical Decision Making - Medical Decision Making This is a 65-year-old male presents for evaluation of abdominal pain, bloating, nausea, vomiting. Thorough history and examination were performed. The abdomen is moderately distended. There is mostly tenderness in the RUQ and LUQ although patient does have mild tenderness in the lower quadrants as well. Negative Matthews sign. No fever. Denies chills. Reports normal bowel movements, last one today. Partial obstruction and colitis are on my differential. I will obtain laboratory studies and CT of the abdomen and pelvis with contrast. Laboratory studies are relatively unremarkable. Normal white count. CT of the abdomen and pelvis is negative for acute process. Case discussed with Dr. Garcia who states patient iis typically stoic and appeared to be in distress due to pain at his appointment today. He would like to admit him for observation. On reevaluation patient reports some improvement of symptoms. Results discussed with patient. Patient declines admission. Patient states he has appointment with Dr. Garcia tomorrow at 12:[address] Garcia requested patient to stay he will have to leave against medical advice. Patient signed AMA form. He will be discharged with Gas-X and Zofran for bloating and nausea. He will follow up with Dr. Garcia at his appointment as scheduled. Return parameters discussed. Patient verbalizes understanding. Dr. Johnston is my attending. - Lab Data Result diagrams: 09/23/21 15:34 09/23/21 15:34 Lab Results 09/23/21 09/23/21 09/23/21 Range/Units 15:34 15:34 15:34 WBC 7.8 (3.8-10.6) k/uL RBC 5.45 (4.30-5.90) m/uL Hgb 16.0 (13.0-17.5) gm/dL Hct 49.7 (39.0-53.0) % MCV 91.3 (80.0-100.0) fL MCH 29.3 (25.0-35.0) pg MCHC 32.1 (31.0-37.0) g/dL RDW 13.1 (11.5-15.5) % Plt Count 267 (150-450) k/uL MPV 8.6 Neutrophils % 72 % Lymphocytes % 18 % Monocytes % 5 % Eosinophils % 2 % Basophils % 1 % Neutrophils # 5.6 (1.3-7.7) k/uL Lymphocytes # 1.4 (1.0-4.8) k/uL Monocytes # 0.4 (0-1.0) k/uL Eosinophils # 0.2 (0-0.7) k/uL Basophils # 0.1 (0-0.2) k/uL Sodium 132 L (137-145) mmol/L Potassium 4.5 (3.5-5.1) mmol/L Chloride 102 (98-107) mmol/L Carbon Dioxide 25 (22-30) mmol/L Anion Gap 5 mmol/L BUN 14 (9-20) mg/dL Creatinine 0.81 (0.66-1.25) mg/dL Est GFR (CKD-EPI)AfAm >90 (>60 ml/min/1.73 sqM) Est GFR (CKD-EPI)NonAf >90 (>60 ml/min/1.73 sqM) Glucose 253 H (74-99) mg/dL Plasma Lactic Acid Christopher 1.3 (0.7-2.0) mmol/L Calcium 9.3 (8.4-10.2) mg/dL Total Bilirubin 0.7 (0.2-1.3) mg/dL AST 29 (17-59) U/L ALT 29 (4-49) U/L Alkaline Phosphatase 78 (38-126) U/L Total Protein 7.3 (6.3-8.2) g/dL Albumin 4.5 (3.5-5.0) g/dL Lipase 101 (23-300) U/L Urine Color Urine Appearance (Clear) Urine pH (5.0-8.0) Ur Specific [place] (1.001-1.035) Urine Protein (Negative) Urine Glucose (UA) (Negative) Urine Ketones (Negative) Urine Blood (Negative) Urine Nitrite (Negative) Urine Bilirubin (Negative) Urine Urobilinogen (<2.0) mg/dL Ur Leukocyte Esterase (Negative) 09/23/21 Range/Units 16:33 WBC (3.8-10.6) k/uL RBC (4.30-5.90) m/uL Hgb (13.0-17.5) gm/dL Hct (39.0-53.0) % MCV (80.0-100.0) fL MCH (25.0-35.0) pg MCHC (31.0-37.0) g/dL RDW (11.5-15.5) % Plt Count (150-450) k/uL MPV Neutrophils % % Lymphocytes % % Monocytes % % Eosinophils % % Basophils % % Neutrophils # (1.3-7.7) k/uL Lymphocytes # (1.0-4.8) k/uL Monocytes # (0-1.0) k/uL Eosinophils # (0-0.7) k/uL Basophils # (0-0.2) k/uL Sodium (137-145) mmol/L Potassium (3.5-5.1) mmol/L Chloride (98-107) mmol/L Carbon Dioxide (22-30) mmol/L Anion Gap mmol/L BUN (9-20) mg/dL Creatinine (0.66-1.25) mg/dL Est GFR (CKD-EPI)AfAm (>60 ml/min/1.73 sqM) Est GFR (CKD-EPI)NonAf (>60 ml/min/1.73 sqM) Glucose (74-99) mg/dL Plasma Lactic Acid Christopher (0.7-2.0) mmol/L Calcium (8.4-10.2) mg/dL Total Bilirubin (0.2-1.3) mg/dL AST (17-59) U/L ALT (4-49) U/L Alkaline Phosphatase (38-126) U/L Total Protein (6.3-8.2) g/dL Albumin (3.5-5.0) g/dL Lipase (23-300) U/L Urine Color Yellow Urine Appearance Clear (Clear) Urine pH 5.5 (5.0-8.0) Ur Specific [place] 1.039 H (1.001-1.035) Urine Protein Negative (Negative) Urine Glucose (UA) 3+ H (Negative) Urine Ketones Trace H (Negative) Urine Blood Negative (Negative) Urine Nitrite Negative (Negative) Urine Bilirubin Negative (Negative) Urine Urobilinogen <2.0 (<2.0) mg/dL Ur Leukocyte Esterase Negative (Negative) Disposition Clinical Impression: Abdominal pain, Abdominal bloating, Nausea and vomiting Disposition: Left Against Medical Advice Condition: Good Instructions (If sedation given, give patient instructions): Acute Nausea and Vomiting (ED), Abdominal Pain (ED) Additional Instructions: You are leaving against medical advice. Please take medication as directed. Follow-up with Dr. Garcia at your appointment tomorrow as scheduled. Return to the emergency department if you experience new, concerning, or worsening symptoms. Prescriptions: Simethicone [Mylanta Gas Minis] 125 mg PO TID PRN #15 tab PRN Reason: Bloating Ondansetron Odt [Zofran Odt] 4 mg PO Q8HR PRN 5 Days #15 tab PRN Reason: Nausea Is patient prescribed a controlled substance at d/c from ED?: No Referrals: Cuate Garcia MD [Primary Care Provider] - 1-2 days Time of Disposition: 17:49
[2021-09-23 16:52] LABS: Appearance,Urine Clear (Clear); Bilirubin,Urine Negative (Negative); Blood,Urine Negative (Negative); Color,Urine Yellow; Glucose,Urine (UA) 3+ (Negative); Ketones,Urine Trace (Negative); Leukocyte Esterase,Urine Negative (Negative); Nitrite,Urine Negative (Negative); PH, Urine 5.5 (5.0-8.0); Protein,Urine Negative (Negative); Specific Gravity,Urine 1.039 (1.001-1.035); Urobilinogen,Urine <2.0 mg/dL (<2.0)
--- NOTE | 2021-09-23 16:55 | CT ---
EXAMINATION TYPE: CT abdomen pelvis w con CT DLP: 1604.1 mGycm, Automated exposure control for dose reduction was used. DATE OF EXAM: 09/23/2021 4:28 PM COMPARISON: CT abdomen pelvis most recent from 08/03/2016. CLINICAL INDICATION:Male, 65 years old with history of abdominal pain; TECHNIQUE: Standard CT of the abdomen and pelvis following the administration of 100 cc of Isovue 3 00 IV contrast material. Coronal and sagittal reformats were performed. FINDINGS: LOWER CHEST: Unremarkable ABDOMEN LIVER: Diffusely hypoattenuating parenchyma. GALLBLADDER AND BILE DUCTS: Unremarkable. PANCREAS: Unremarkable. SPLEEN: Unremarkable. ADRENAL GLANDS: Unremarkable. KIDNEYS AND URETERS: No evidence of hydronephrosis or renal calculus. The ureters are unremarkable. PELVIS BLADDER: Unremarkable REPRODUCTIVE: Unremarkable. ABDOMEN & PELVIS STOMACH AND BOWEL: No evidence of bowel obstruction. Appendix is normal. PERITONEUM: No evidence of pneumoperitoneum or free fluid. VASCULATURE: No evidence of aortic aneurysm. MUSCULOSKELETAL: Mild disc degeneration changes are present throughout the thoracolumbar spine.. LYMPH NODES: No gross evidence for lymphadenopathy. SOFT TISSUE/ABDOMINAL WALL: Bilateral fat filled inguinal hernia. IMPRESSION: 1. No evidence for acute abdominal process. 2. Hepatic steatosis. 3. Bilateral fat filled inguinal hernias.
[2021-09-23 17:59] VITALS: BP 164/99; PULSE 79; RESP 16
== END 2021-09-23 17:59 | disposition left against medical advice (07) ==
LOC: EC 15:09
DX: R14.0 Abdominal distension (gaseous) (principal); R11.2 Nausea with vomiting, unspecified; E11.9 Type 2 diabetes mellitus without complications; I10 Essential (primary) hypertension; E78.5 Hyperlipidemia, unspecified; Z86.73 Personal history of transient ischemic attack (TIA), and cerebral infarction without residual deficits; Z82.49 Family history of ischemic heart disease and other diseases of the circulatory system; Z88.0 Allergy status to penicillin; Z88.8 Allergy status to other drugs, medicaments and biological substances
CPT/HCPCS: 36415; 80053; 83605; 83690; 85025; 81003; 71046; 74177; 99285; 96374; 96361; 96375; J2270; J2405; Q9967

== ENCOUNTER 2021-09-29 06:43 | Day surgery (SDC) | payer MEDICARE, OTHER ==
[2021-09-28 08:55] VITALS: BMI 32.2
[2021-09-29] MEDS ORDERED: LACTATED RINGERS 1,000 ML IV SCH (07:16)
[2021-09-29] MEDS ORDERED: LIDOCAINE 1% (10MG/ML) FOR IV START INTRADERMA ONE (07:54)
[2021-09-29 07:57] VITALS: TEMP 97.6
[2021-09-29 08:01] LABS: Glucose,Whole Blood 170 mg/dL (75-99)
[2021-09-29] MEDS ORDERED: LIDOCAINE 2% INJ 20 MG/ML (2 ML VIAL) ONE (08:29)
[2021-09-29] MEDS ORDERED: PROPOFOL 10 MG/ML 20 ML VIAL IV ONE (08:29)
--- NOTE | 2021-09-29 08:31 | P.GSHP ---
History of Present Illness H&P Date: 09/29/21 Chief Complaint: GERD, screening colonoscopy This a 65-year-old male presents today for EGD and screening colonoscopy. Patient denies a significant GI complaints. He's had issues with GERD. Past Medical History Past Medical History: CVA/TIA, Diabetes Mellitus, Hyperlipidemia, Hypertension, Sleep Apnea/CPAP/BIPAP Additional Past Medical History / Comment(s): narcolepsy,migraines, TIA 03/2015, SLIGHT MEMORY LOSS, SEEN IN ER 09/23 AND 09/25/20 FOR CHEST PAIN AND ABD. PAIN History of Any Multi-Drug Resistant Organisms: None Reported Past Surgical History: Back Surgery, Hernia Repair, Orthopedic Surgery Additional Past Surgical History / Comment(s): eye surgery x 3 for "cross eyed" as infant. Right knee arthroscopy. hernia surgery x3. COLONOSCOPY Past Anesthesia/Blood Transfusion Reactions: No Reported Reaction Smoking Status: Never smoker - Past Family History Mother Family Medical History: Diabetes Mellitus Additional Family Medical History / Comment(s): legally blind Father Family Medical History: Myocardial Infarction ([place]) Additional Family Medical History / Comment(s): fatal [place] Medications and Allergies Home Medications Medication Instructions Recorded Confirmed Type Atorvastatin Calcium [Lipitor] 40 mg PO HS 12/31/13 09/29/21 History lisinopriL [Zestril] 20 mg PO DAILY 08/24/15 09/28/21 History Citalopram Hydrobromide [CeleXA] 40 mg PO HS 04/28/19 09/28/21 History ARIPiprazole [Abilify] 5 mg PO HS 09/23/21 09/28/21 History Albuterol Sulfate [Albuterol 2 puff PO RT-Q6H PRN 09/23/21 09/29/21 History Sulfate Hfa] Dulaglutide [Trulicity] 1.5 mg SQ QMONTHLY 09/23/21 09/29/21 History INSULIN ASPART (NovoLOG) [NovoLOG See Protocol SQ DAILY@1200 09/23/21 09/28/21 History (formulary)] Insulin Glargine [Lantus Vial] 50 unit SQ BID 09/23/21 09/29/21 History Omeprazole 40 mg PO HS 09/23/21 09/29/21 History Ondansetron Odt [Zofran Odt] 4 mg PO Q8HR PRN 5 Days #15 tab 09/23/21 09/28/21 Rx Simethicone [Mylanta Gas Minis] 125 mg PO TID PRN #15 tab 09/23/21 09/28/21 Rx metFORMIN HCL [Glucophage] 1,000 mg PO W/SUPPER 09/23/21 09/28/21 History traZODone HCL 50 mg PO HS 09/23/21 09/29/21 History Allergies Allergy/AdvReac Type Severity Reaction Status Date / Time amoxicillin Allergy Rash/Hives Verified 09/29/21 07:34 modafinil [From Provigil] AdvReac HEADACHE Verified 09/29/21 07:34 Surgical - Exam Vital Signs Temp Pulse Resp BP Pulse Ox 97.6 F 76 18 154/88 98 09/29/21 07:20 09/29/21 07:20 09/29/21 07:20 09/29/21 07:20 09/29/21 07:20 - General well developed, well nourished, no distress - Eyes PERRL - ENT normal pinna - Neck no masses - Respiratory normal expansion - Cardiovascular Rhythm: regular - Abdomen Abdomen: soft, non tender Results - Labs Abnormal Lab Results - Last 24 Hours (Table) 09/29/21 Range/Units 07:51 POC Glucose (mg/dL) 170 H (75-99) mg/dL Assessment and Plan Assessment: GERD, GI bleed. We'll perform EGD and colonoscopy.
--- NOTE | 2021-09-29 08:57 | P.OP ---
Date of Procedure: 09/29/21 Preoperative Diagnosis: GERD, screening colonoscopy Postoperative Diagnosis: Antral gastritis Esophagitis Rectal polyp Mild diverticulosis Procedure(s) Performed: Colonoscopy Anesthesia: MAC Surgeon: Ricardo Funez Pathology: other (Rectal polyp, antrum, esophagus) Condition: stable Disposition: PACU Description of Procedure: The patient's placed on the endoscopy table in the lateral position. He received IV sedation. The gastro-/oropharynx passed in the esophagus and stomach. Scope was then placed through the pylorus. The first and second portion of the duodenum appeared normal. Scope was brought back the antrum this. Mildly inflamed. A biopsies performed. Scope was unretroflexed and remainder the stomach appeared normal. The GE junction was at 40 cm the distal esophagus appeared mildly inflamed. A biopsies performed. The proximal esophagus appeared normal. Scope withdrawn for patient. Next digital rectal exam was performed. This revealed no ebonized. Flexible colonoscope was then placed patient anus passed throughout the entire colon. The ileocecal valve was visualized. The cecum appeared normal. The ascending and transverse colon appeared normal. In the descending; was mild diverticular changes. Scope was then brought back the rectum and a small polyp seen. This moved with the snare scope was withdrawn for patient.
[2021-09-29 09:15] VITALS: BP 144/90; PULSE 71; RESP 18
== END 2021-09-29 09:28 | disposition home or self-care (01) ==
LOC: ORWHC2ENDO 06:43
PROVIDERS: ATTEND Surgery
DX: K21.9 Gastro-esophageal reflux disease without esophagitis (principal); K29.50 Unspecified chronic gastritis without bleeding; Z12.11 Encounter for screening for malignant neoplasm of colon; D12.8 Benign neoplasm of rectum; K57.30 Diverticulosis of large intestine without perforation or abscess without bleeding; E11.9 Type 2 diabetes mellitus without complications; E78.5 Hyperlipidemia, unspecified; I10 Essential (primary) hypertension; G47.30 Sleep apnea, unspecified; G47.419 Narcolepsy without cataplexy; H54.8 Legal blindness, as defined in USA; G43.909 Migraine, unspecified, not intractable, without status migrainosus; G47.33 Obstructive sleep apnea (adult) (pediatric); Z86.73 Personal history of transient ischemic attack (TIA), and cerebral infarction without residual deficits; Z98.890 Other specified postprocedural states; Z79.899 Other long term (current) drug therapy; Z79.4 Long term (current) use of insulin; Z79.84 Long term (current) use of oral hypoglycemic drugs; Z88.0 Allergy status to penicillin; Z83.3 Family history of diabetes mellitus; Z82.49 Family history of ischemic heart disease and other diseases of the circulatory system
CPT/HCPCS: 88305; 45385; 43239; J2704; J2001

== ENCOUNTER → 2023-09-29 | Outpatient (CLI) | payer MEDICARE ==
--- NOTE | 2023-09-30 07:52 | MR ---
EXAMINATION TYPE: MR lumbar spine wo con DATE OF EXAM: 09/29/2023 3:30 PM CLINICAL INDICATION:Male, 67 years old with history of M54.51 LUMBAGO WITH SCIATICA, RIGHT SIDE; PHH, Low back pain that radiates down right leg, history of surgery COMPARISON: 11/24/2020 TECHNIQUE: Multi planar, multi sequence imaging was performed utilizing: T1-weighted, T2-weighted, a nd turbo inversion recovery imaging of the lumbar spine. IV Contrast: cc . (None if empty) FINDINGS: Alignment: The lumbar vertebral bodies have preserved heights and alignment. Cord: The conus medullaris and the distal spinal cord appear unremarkable with regards to their signa l intensity and morphology. Bones/Discs: Mild degeneration changes throughout the spine with osteophyte formation and facet joint arthropathy. Intervertebral disc signal is maintained. T12-L1: No evidence of significant spinal canal stenosis or neural foraminal stenosis. L1-L2: Disc bulge and facet joint arthropathy result in mild spinal canal and mild to moderate bilate ral neural foraminal stenosis. L2-L3: Disc bulge and facet joint arthropathy result in mild spinal canal and mild to moderate bilate ral neural foraminal stenosis. L3-L4: Disc bulge and facet joint arthropathy result in mild spinal canal and mild to moderate bilate ral neural foraminal stenosis. L4-L5: Disc bulge and facet joint arthropathy result in mild spinal canal and moderate bilateral neur al foraminal stenosis. L5-S1: The disc has a rounded posterior morphology without significant spinal canal stenosis. Facet j oint arthropathy with moderate to severe bilateral neural foraminal stenosis. No significant spinal canal or neural foraminal stenosis in the remainder of the visualized levels. Other findings: None. IMPRESSION: 1. No definitive evidence of disc herniation or significant spinal canal stenosis. 2. Multilevel disc degeneration with associated osteoarthritic changes. Neural foraminal stenosis wo rse at L5-S1 bilaterally with moderate to severe bilateral stenosis.
== END | disposition home or self-care (01) ==
LOC: RADMRIMAIN 13:38
PROVIDERS: ATTEND Family Medicine
DX: M51.36 Other intervertebral disc degeneration, lumbar region (principal); M99.73 Connective tissue and disc stenosis of intervertebral foramina of lumbar region; M54.41 Lumbago with sciatica, right side
CPT/HCPCS: 72148